=== PATIENT | female | born 1990 | race Caucasian/White ===

== ENCOUNTER → 2016-06-12 | Outpatient (CLI) | payer OTHER ==
[2016-06-12 10:51] LABS: Basophils # (auto) 0 uL; Basophils % (auto) 0.2 % (0.0-2.0); DEFINITIVE VIEW TRANSMISSION; Eosinophils # (auto) 0 uL; Eosinophils % (auto) 0.3 % (0.0-7.0); Hematocrit 41.1 % (36.0-46.0); Hemoglobin 13.2 g/dL (12.2-16.2); Lymphocytes # (auto) 1.3 uL; Lymphocytes % (auto) 18.2 % (10.0-50.0); Mean Corpuscular Hemoglobin 26.1 pg (28.0-32.0); Mean Corpuscular Hgb Conc. 32.2 g/dL (32.0-36.0); Mean Corpuscular Volume 81.2 fL (80.0-100.0); Mean Platelet Volume 8.2 fL (7.4-10.4); Monocytes # (auto) 0.3 uL; Monocytes % (auto) 4.2 % (0.0-12.0); Neutrophils # (auto) 5.3 uL; Neutrophils % (auto) 77.1 % (37.0-80.0); Platelet Count (auto) 276 10^3/uL (140-450); Red Cell Distribution Width 17.3 % (11.6-16.0); White Blood Cell 6.9 10^3/uL (4.4-10.8)
== END | disposition home or self-care (01) ==
LOC: LAB 09:20
PROVIDERS: ATTEND Obstetrics & Gynecology
DX: Z34.80 Encounter for supervision of other normal pregnancy, unspecified trimester (principal); Z20.2 Contact with and (suspected) exposure to infections with a predominantly sexual mode of transmission; Z13.228 Encounter for screening for other metabolic disorders
CPT/HCPCS: 36415; 84144; 85025; 86703; 86762; 86850; 86900; 86901; 87086; 87340

== ENCOUNTER → 2016-09-26 | Outpatient (CLI) | payer OTHER ==
[2016-09-26 07:29] LABS: Basophils # (auto) 0 uL; Basophils % (auto) 0.5 % (0.0-2.0); CONDITION Y; Eosinophils # (auto) 0.1 uL; Eosinophils % (auto) 0.8 % (0.0-7.0); Hematocrit 39.5 % (36.0-46.0); Hemoglobin 13.3 g/dL (12.2-16.2); Lymphocytes # (auto) 1.5 uL; Lymphocytes % (auto) 17.7 % (10.0-50.0); Mean Corpuscular Hemoglobin 29.6 pg (28.0-32.0); Mean Corpuscular Hgb Conc. 33.7 g/dL (32.0-36.0); Mean Corpuscular Volume 87.7 fL (80.0-100.0); Mean Platelet Volume 7.7 fL (7.4-10.4); Monocytes # (auto) 0.5 uL; Monocytes % (auto) 5.5 % (0.0-12.0); Neutrophils # (auto) 6.2 uL; Neutrophils % (auto) 75.5 % (37.0-80.0); Platelet Count (auto) 210 10^3/uL (140-450); Red Cell Distribution Width 14.8 % (11.6-16.0); White Blood Cell 8.2 10^3/uL (4.4-10.8)
== END | disposition home or self-care (01) ==
LOC: LAB 07:11
PROVIDERS: ATTEND Obstetrics & Gynecology
DX: Z34.80 Encounter for supervision of other normal pregnancy, unspecified trimester (principal); O99.810 Abnormal glucose complicating pregnancy
CPT/HCPCS: 36415; 82951; 85025

== ENCOUNTER → 2016-11-28 | Outpatient (CLI) | payer OTHER ==
[2016-11-28 11:14] LABS: Basophils # (auto) 0 uL; Basophils % (auto) 0.3 % (0.0-2.0); Eosinophils # (auto) 0 uL; Eosinophils % (auto) 0.3 % (0.0-7.0); Hematocrit 39.1 % (36.0-46.0); Hemoglobin 13.6 g/dL (12.2-16.2); Lymphocytes # (auto) 1.1 uL; Mean Corpuscular Hemoglobin 30.1 pg (28.0-32.0); Mean Corpuscular Hgb Conc. 34.8 g/dL (32.0-36.0); Mean Corpuscular Volume 86.4 fL (80.0-100.0); Mean Platelet Volume 7.6 fL (6.9-10.8); Monocytes # (auto) 0.5 uL; Monocytes % (auto) 6.5 % (0.0-12.0); Neutrophils # (auto) 5.8 uL; Neutrophils % (auto) 77.9 % (37.0-80.0); Platelet Count (auto) 175 10^3/uL (140-450); Red Cell Distribution Width 14.4 % (11.8-14.3); White Blood Cell 7.5 10^3/uL (4.4-10.8)
== END | disposition home or self-care (01) ==
LOC: LAB 10:48
PROVIDERS: ATTEND Obstetrics & Gynecology
DX: Z34.80 Encounter for supervision of other normal pregnancy, unspecified trimester (principal)
CPT/HCPCS: 36415; 85025; 86592

== ENCOUNTER 2016-12-14 03:55 | Inpatient (IN) | payer OTHER ==
[2016-12-14] VITALS (11 sets, daily range): BP systolic 116–128; BP diastolic 69–81
[~2016-12-14] VITALS: Ht 162.6 cm; Wt 69.4 kg
[2016-12-14] MEDS ORDERED: LACTATED RINGER'S 1,000 ML IV SCH (04:18)
[2016-12-14 04:57] LABS: Urine RBC None Seen /hpf (0 - 4)
[2016-12-14 05:04] LABS: Basophils # (auto) 0 uL; Basophils % (auto) 0.2 % (0.0-2.0); Eosinophils # (auto) 0.1 uL; Eosinophils % (auto) 0.9 % (0.0-7.0); Hematocrit 38.4 % (36.0-46.0); Lymphocytes # (auto) 1.5 uL; Lymphocytes % (auto) 22.2 % (10.0-50.0); Mean Corpuscular Hemoglobin 29.7 pg (28.0-32.0); Mean Corpuscular Hgb Conc. 33.8 g/dL (32.0-36.0); Mean Corpuscular Volume 87.9 fL (80.0-100.0); Monocytes # (auto) 0.4 uL; Monocytes % (auto) 6.4 % (0.0-12.0); Neutrophils # (auto) 4.7 uL; Neutrophils % (auto) 70.3 % (37.0-80.0); Nucleated Red Blood Cells % 0.1 %; Platelet Count (auto) 159 10^3/uL (140-450); Red Cell Distribution Width 14.4 % (11.8-14.3); White Blood Cell 6.8 10^3/uL (4.4-10.8)
[2016-12-14 05:12] LABS: Urine Bilirubin Negative (Negative); Urine Blood Negative /uL (Negative); Urine Color Yellow (Yellow); Urine Glucose Normal (Normal); Urine Ketone Negative (Negative); Urine Mucus FEW (None Seen); Urine Nitrite Negative (Negative); Urine Squamous Epithelial Cell FEW /hpf (<5); Urine Urobilinogen Normal (Negative)
[2016-12-14 05:18] LABS: Albumin 2.7 g/dL (3.4-5.0); BUN/Creatinine Ratio 18.8; Calcium 8.5 mg/dL (8.5-10.1); Potassium 3.5 mmol/L (3.5-5.1)
[2016-12-14 05:19] LABS: INR 0.89 (0.9-1.15); Partial Thromboplastin Time 29.9 sec (22.64-33.71); Prothrombin Time 9.7 sec (9.37-12.3)
[2016-12-14 05:22] LABS: Bilirubin, Total 0.2 mg/dL (0.2-1.0); Total Protein 6.5 g/dL (6.4-8.2)
[2016-12-14] MEDS ORDERED: PREN-153 OR (05:51)
[2016-12-14] MEDS ORDERED: fentaNYL CITRATE 100 MCG/2 ML VL ONE (07:30)
[2016-12-14] MEDS ORDERED: ceFAZolin 1GM VL ONE (08:57)
[2016-12-14] MEDS ORDERED: OXYTOCIN 10 UNIT/ML 10ML VIAL ONE (08:57)
[2016-12-14] MEDS ORDERED: ceFAZolin 1GM/50ML D5W 50 ML IV SCH (09:00)
[2016-12-14] MEDS ORDERED: HYDROmorphone HCL 2 MG/ML VL IV PRN (09:15)
[2016-12-14] MEDS ORDERED: ePHEDrine SULFATE 50 MG/ML AMP IV PRN (09:15)
[2016-12-14] MEDS ORDERED: hydrALAZINE HCL 20 MG/ML VL IV PRN (09:15)
[2016-12-14] MEDS ORDERED: ONDANSETRON HCL 4 MG/2 ML VIAL IV ONE (09:15)
[2016-12-14] MEDS: LACT. RINGERS/OXYTOCIN 20UNITS 1,000 ML IV SCH ×3 (10:35→22:17)
[2016-12-14] MEDS: HYDROmorphone HCL 2 MG/ML VL IV PRN ×4 (11:29→23:45)
[2016-12-14] MEDS: MORPHINE SULF INJ 2 MG/ML SYRINGE 1ML IV PRN ×2 (12:12→17:17)
[2016-12-14] MEDS: ceFAZolin 1GM/50ML D5W 50 ML IV SCH (16:58)
[2016-12-14 20:33] LABS: Basophils # (auto) 0 uL; Basophils % (auto) 0.2 % (0.0-2.0); Eosinophils # (auto) 0 uL; Hematocrit 38.6 % (36.0-46.0); Hemoglobin 13.1 g/dL (12.2-16.2); Lymphocytes % (auto) 10.2 % (10.0-50.0); Mean Corpuscular Hemoglobin 29.8 pg (28.0-32.0); Mean Corpuscular Volume 87.7 fL (80.0-100.0); Mean Platelet Volume 7.9 fL (6.9-10.8); Monocytes # (auto) 0.5 uL; Monocytes % (auto) 5.2 % (0.0-12.0); Neutrophils # (auto) 8.4 uL; Neutrophils % (auto) 84.4 % (37.0-80.0); Nucleated Red Blood Cells % 0.1 %; Platelet Count (auto) 148 10^3/uL (140-450); Red Cell Distribution Width 14.3 % (11.8-14.3); White Blood Cell 9.9 10^3/uL (4.4-10.8)
[2016-12-14] MEDS: KETOROLAC TROMETH 30 MG/ML 1ML VIAL IV PRN (21:53)
[2016-12-15] MEDS: ceFAZolin 1GM/50ML D5W 50 ML IV SCH (01:00)
[2016-12-15] MEDS ORDERED: TETANUS-DIPTH-ACEL PERTUSSIS 0.5ML SYRG IM ONE (01:30)
[2016-12-15 03:30] VITALS: BP 100/58
[2016-12-15] MEDS: KETOROLAC TROMETH 30 MG/ML 1ML VIAL IV PRN (04:00)
[2016-12-15] MEDS: LACT. RINGERS/OXYTOCIN 20UNITS 1,000 ML IV SCH (04:57)
[2016-12-15] MEDS ORDERED: LACTATED RINGER'S 1,000 ML IV SCH ×2 (05:30→09:09)
[2016-12-15 06:32] LABS: Basophils # (auto) 0 uL; Basophils % (auto) 0.2 % (0.0-2.0); Eosinophils # (auto) 0 uL; Eosinophils % (auto) 0.2 % (0.0-7.0); Hematocrit 37.3 % (36.0-46.0); Hemoglobin 12.6 g/dL (12.2-16.2); Lymphocytes # (auto) 0.8 uL; Lymphocytes % (auto) 9.8 % (10.0-50.0); Mean Corpuscular Hemoglobin 29.6 pg (28.0-32.0); Mean Corpuscular Hgb Conc. 33.9 g/dL (32.0-36.0); Mean Corpuscular Volume 87.3 fL (80.0-100.0); Mean Platelet Volume 7.8 fL (6.9-10.8); Monocytes # (auto) 0.5 uL; Neutrophils # (auto) 6.5 uL; Neutrophils % (auto) 83.8 % (37.0-80.0); Platelet Count (auto) 140 10^3/uL (140-450); Red Cell Distribution Width 14.5 % (11.8-14.3); White Blood Cell 7.7 10^3/uL (4.4-10.8)
[2016-12-15 07:38] VITALS: BP 118/74
[2016-12-15] MEDS ORDERED: BISACODYL 10 MG RECT SUPP PR PRN (09:15)
[2016-12-15] MEDS ORDERED: HYDROcodone-ACET 5/325MG TAB PO PRN (09:15)
[2016-12-15] MEDS: DOCUSATE SOD 100 MG CAP PO SCH ×2 (09:36→22:23)
[2016-12-15] MEDS: DOCUSATE CALCIUM 240 MG CAP PO SCH (09:36)
[2016-12-15] MEDS: SIMETHICONE 80 MG CHEWABLE TABLET PO SCH ×3 (09:37→22:23)
[2016-12-15] MEDS: FERROUS SULFATE 325 MG TAB PO SCH ×2 (09:37→22:23)
[2016-12-15] MEDS: HYDROcodone-ACET 5/325MG TAB PO PRN ×3 (09:37→22:24)
[2016-12-15 12:10] VITALS: BP 119/69
[2016-12-15 16:15] VITALS: BP 130/79
[2016-12-15 18:30] VITALS: BP 138/79
[2016-12-15] MEDS: IBUPROFEN 800 MG TAB PO PRN (19:03)
[2016-12-15 22:30] VITALS: BP 120/68
[2016-12-16 03:00] VITALS: BP 112/57
[2016-12-16] MEDS: IBUPROFEN 800 MG TAB PO PRN ×2 (03:21→12:05)
[2016-12-16] MEDS: SIMETHICONE 80 MG CHEWABLE TABLET PO SCH ×4 (06:36→22:54)
[2016-12-16] MEDS: HYDROcodone-ACET 5/325MG TAB PO PRN ×2 (06:36→15:06)
[2016-12-16 07:30] VITALS: BP 119/68
[2016-12-16] MEDS: DOCUSATE CALCIUM 240 MG CAP PO SCH (09:02)
[2016-12-16] MEDS: FERROUS SULFATE 325 MG TAB PO SCH ×2 (09:02→22:54)
[2016-12-16] MEDS: DOCUSATE SOD 100 MG CAP PO SCH ×2 (09:02→22:55)
[2016-12-16 12:00] VITALS: BP 127/75
[2016-12-16 15:43] VITALS: BP 116/70
[2016-12-16 18:30] VITALS: BP 116/68
[2016-12-16 23:00] VITALS: BP 123/75
[2016-12-17] MEDS: IBUPROFEN 800 MG TAB PO PRN (03:26)
[2016-12-17 03:30] VITALS: BP 119/71
[2016-12-17] MEDS: SIMETHICONE 80 MG CHEWABLE TABLET PO SCH (05:55)
[2016-12-17] MEDS: HYDROcodone-ACET 5/325MG TAB PO PRN ×2 (05:56→10:02)
[2016-12-17 07:02] VITALS: BP 114/72
[2016-12-17] MEDS: DOCUSATE CALCIUM 240 MG CAP PO SCH (09:59)
[2016-12-17] MEDS: FERROUS SULFATE 325 MG TAB PO SCH (10:00)
[2016-12-17] MEDS: DOCUSATE SOD 100 MG CAP PO SCH (10:00)
== END 2016-12-17 10:20 | disposition home or self-care (01) | DRG 766 ==
LOC: LDRP 03:55
PROVIDERS: ADMIT Obstetrics & Gynecology; ATTEND Obstetrics & Gynecology
PROC: 0UL70CZ Occlusion of Bilateral Fallopian Tubes with Extraluminal Device, Open Approach (ICD-10-PCS; 2016-12-14)
PROC: 10D00Z1 Extraction of Products of Conception, Low, Open Approach (ICD-10-PCS; principal; 2016-12-14 07:57)
DX: O34.211 Maternal care for low transverse scar from previous cesarean delivery (principal); N73.6 Female pelvic peritoneal adhesions (postinfective); O99.89 Other specified diseases and conditions complicating pregnancy, childbirth and the puerperium; Z37.0 Single live birth; Z3A.39 39 weeks gestation of pregnancy; Z30.2 Encounter for sterilization; Z23 Encounter for immunization; Z82.49 Family history of ischemic heart disease and other diseases of the circulatory system
CPT/HCPCS: 36415; 51702; 59025; 80053; 80307; 81001; 85025; 85610; 85730; 86850; 86900; 86901; 90715; 94762; 96361; 96366; 96372; 96374; 96375; J0690; J1885; J2590